=== PATIENT | male | born 1945 | race Caucasian/White ===

== ENCOUNTER 2017-07-11 19:22 | Observation (INO) | payer BC, OTHER ==
[~2017-07-11] VITALS: Ht 198.1 cm; Wt 90.6 kg
[2017-07-11 19:58] LABS: HEMATOCRIT 42.7 % (38.0-50.0); HEMOGLOBIN 14.7 G/DL (12.5-16.6); MCH 29.9 PG (29.0-34.0); MCHC 34.4 G/DL (30.0-36.0); PLATELET COUNT 183 K/uL (156-360); RBC DIS.WIDTH-CV 12.3 % (11.8-14.6); RBC DIS.WIDTH-SD 39.3 % (39-53); RED BLOOD COUNT 4.91 M/uL (4.00-5.50); WHITE BLOOD COUNT 6.8 K/uL (4.1-10.2)
[2017-07-11 20:07] LABS: CHLORIDE 102 mEq/L (99-109); POTASSIUM 5.1 mEq/L (3.7-5.4); SODIUM 136 mEq/L (136-147)
[2017-07-11 20:08] LABS: GLUCOSE 176 mg/dL (70-99)
[2017-07-11 20:12] LABS: CREATININE 0.9 mg/dL (0.6-1.3); GFR ESTIMATE (CALCULATED) > 59 mL/min/ (58.99-99999)
[2017-07-11 20:13] LABS: UREA NITROGEN (BUN) 11 mg/dL (9-23)
[2017-07-11 20:20] LABS: TROP-I INTERPRETATION NEGATIVE; TROPONIN-I < 0.01 ng/mL (0.0-0.30)
[2017-07-11] MEDS ORDERED: METFORMIN HCL500 MG PO (22:48)
[2017-07-11] MEDS ORDERED: AMARYL4 MG PO (22:49)
[2017-07-11] MEDS ORDERED: LUNESTA3 MG PO (22:50)
[2017-07-11] MEDS ORDERED: KLONOPIN1 MG PO (22:51)
[2017-07-11] MEDS ORDERED: LIPITOR20 MG PO (22:52)
[2017-07-11] MEDS ORDERED: LO-DOSE ASPIRIN81 M2 PO (22:53)
[2017-07-11 23:20] VITALS: BP 121/71
[2017-07-12 03:08] LABS: TROP-I INTERPRETATION NEGATIVE; TROPONIN-I < 0.01 ng/mL (0.0-0.30)
[2017-07-12 03:59] VITALS: BP 87/60
[2017-07-12 04:09] VITALS: BP 102/68
[2017-07-12 08:14] VITALS: BP 114/61
[2017-07-12 08:16] LABS: HEMATOCRIT 37.1 % (38.0-50.0); MCH 29.2 PG (29.0-34.0); MCV 86.1 FL (86-99); PLATELET COUNT 149 K/uL (156-360); RBC DIS.WIDTH-CV 12.3 % (11.8-14.6); RBC DIS.WIDTH-SD 38.6 % (39-53); RED BLOOD COUNT 4.31 M/uL (4.00-5.50); WHITE BLOOD COUNT 4.9 K/uL (4.1-10.2)
[2017-07-12 08:19] LABS: HEMOGLOBIN 12.6 G/DL (12.5-16.6)
[2017-07-12 08:41] LABS: TROP-I INTERPRETATION NEGATIVE; TROPONIN-I < 0.01 ng/mL (0.0-0.30)
[2017-07-12 08:46] LABS: CHLORIDE 105 MEQ/L (99-109); CREATININE 0.8 MG/DL (0.6-1.3); GFR ESTIMATE (CALCULATED) > 59 mL/min/ (58.99-99999); POTASSIUM 4.3 MEQ/L (3.7-5.4); SODIUM 138 MEQ/L (136-147); UREA NITROGEN (BUN) 14 mg/dL (9-23)
[2017-07-12 09:32] LABS: GLUCOSE 91 mg/dL (70-99)
[2017-07-12 12:13] VITALS: BP 101/71
[2017-07-12 12:29] LABS: PTT 28.2 SEC (25-37)
[2017-07-12 16:03] VITALS: BP 115/80
[2017-07-12 19:18] VITALS: BP 123/66
[2017-07-13 00:11] VITALS: BP 121/66
[2017-07-13 03:50] VITALS: BP 101/51
[2017-07-13 07:29] VITALS: BP 115/87
[2017-07-13] MEDS ORDERED: AMOX TR-K CLV1 EAC4 PO (11:47)
[2017-07-13] MEDS ORDERED: TRAMADOL HCL50 MG PO (11:48)
[2017-07-13 12:14] VITALS: BP 116/73
== END 2017-07-13 12:48 | disposition home or self-care (01) ==
LOC: EME 19:22 → EDOF 22:11 → ENRESERV 22:12 → 4SOUTH 23:03
PROVIDERS: Hospitalist; Physician Assistant
PROC: 0BBF3ZX Excision of Right Lower Lung Lobe, Percutaneous Approach, Diagnostic (ICD-10-PCS; principal; 2017-07-12)
DX: C34.31 Malignant neoplasm of lower lobe, right bronchus or lung (principal); J95.811 Postprocedural pneumothorax; Z87.891 Personal history of nicotine dependence; I45.19 Other right bundle-branch block; E11.9 Type 2 diabetes mellitus without complications; I10 Essential (primary) hypertension; E78.5 Hyperlipidemia, unspecified; F40.240 Claustrophobia; Z82.49 Family history of ischemic heart disease and other diseases of the circulatory system; Z83.3 Family history of diabetes mellitus
CPT/HCPCS: 71045; 71046; 71275; 77012; 80048; 82948; 83605; 84145 90; 84484; 85027; 85610; 85730; 87040; 88305; 88341 TC; 88342 TC; 93005; 99281; 99284; G0378; J0696; J1650; J1815; J1885; J3010; J7030

== ENCOUNTER 2017-08-15 18:10 | Inpatient (IN) | payer BC, OTHER ==
[~2017-08-15] VITALS: Ht 195.6 cm; Wt 91.7 kg
[~2017-08-15 18:10] MED LIST: AMARYL4 MG PO; AMOX TR-K CLV1 EAC4 PO; KLONOPIN1 MG PO; LIPITOR20 MG PO; LO-DOSE ASPIRIN81 M2 PO; LUNESTA3 MG PO; METFORMIN HCL500 M1 PO; TRAMADOL HCL50 MG PO
[2017-08-15 18:47] LABS: HEMATOCRIT 42.5 % (38.0-50.0); MCH 29.9 PG (29.0-34.0); MCHC 35.3 G/DL (30.0-36.0); MCV 84.8 FL (86-99); PLATELET COUNT 220 K/uL (156-360); RBC DIS.WIDTH-CV 12.1 % (11.8-14.6); RBC DIS.WIDTH-SD 37.2 % (39-53); RED BLOOD COUNT 5.01 M/uL (4.00-5.50); WHITE BLOOD COUNT 7.9 K/uL (4.1-10.2)
[2017-08-15 18:50] LABS: ALBUMIN 3.5 g/dL (3.2-4.8); CHLORIDE 100 mEq/L (99-109); POTASSIUM 4.6 mEq/L (3.7-5.4); SODIUM 136 mEq/L (136-147)
[2017-08-15 18:52] LABS: GLUCOSE 118 mg/dL (70-99); TOTAL PROTEIN 6.1 g/dL (6.4-8.3)
[2017-08-15 18:54] LABS: TOTAL BILIRUBIN 0.6 mg/dL (0.0-1.0)
[2017-08-15 18:56] LABS: ALKALINE PHOSPHATASE 97 IU/L (3-129); CREATININE 0.7 mg/dL (0.6-1.3); GFR ESTIMATE (CALCULATED) > 59 mL/min/ (58.99-99999)
[2017-08-15 18:57] LABS: UREA NITROGEN (BUN) 17 mg/dL (9-23)
[2017-08-15 18:58] LABS: AST (GOT) 23 IU/L (2-34)
[2017-08-15 18:59] LABS: ALT (GPT) 21 IU/L (3-49); LIPASE 81 U/L (1.0-51.0)
[2017-08-15 19:05] LABS: TROP-I INTERPRETATION NEGATIVE; TROPONIN-I 0.01 ng/mL (0.0-0.30)
[2017-08-15] MEDS ORDERED: DULOXETINE HCL40 MG PO (20:30)
[2017-08-15] MEDS ORDERED: ZOFRAN8 MG PO (20:31)
[2017-08-15] MEDS ORDERED: HYDROCODON-ACE1 EAC9 PO (20:31)
[2017-08-15] MEDS ORDERED: FOLIC ACID1 MG PO (20:31)
[2017-08-16] VITALS (7 sets, daily range): BP systolic 101–129; BP diastolic 57–80
[2017-08-16 06:41] LABS: HEMATOCRIT 39.1 % (38.0-50.0); HEMOGLOBIN 13.3 G/DL (12.5-16.6); MCH 28.9 PG (29.0-34.0); PLATELET COUNT 209 K/uL (156-360); RBC DIS.WIDTH-CV 12.2 % (11.8-14.6); RBC DIS.WIDTH-SD 37.4 % (39-53); WHITE BLOOD COUNT 6.4 K/uL (4.1-10.2)
[2017-08-16 07:01] LABS: TROP-I INTERPRETATION NEGATIVE; TROPONIN-I < 0.01 ng/mL (0.0-0.30)
[2017-08-16 07:07] LABS: CHLORIDE 98 MEQ/L (99-109); CREATININE 0.8 MG/DL (0.6-1.3); GFR ESTIMATE (CALCULATED) > 59 mL/min/ (58.99-99999); GLUCOSE 139 mg/dL (70-99); POTASSIUM 4.5 MEQ/L (3.7-5.4); SODIUM 135 MEQ/L (136-147); UREA NITROGEN (BUN) 14 mg/dL (9-23)
[2017-08-16 07:41] LABS: INTER. NORMALIZED RATIO 1.1
[2017-08-16 07:43] LABS: PTT 27.9 SEC (25-37)
[2017-08-16 12:58] LABS: TYPE OF FLUID PLEURAL
[2017-08-16 13:52] LABS: BODY FLUID PROTEIN 3.9 G/DL
[2017-08-16 14:05] LABS: APPEARANCE CLOUDY-BLOODY; BODY FLUID EOSINOPHILS 0 % (0-25); BODY FLUID RBC'S 43000 /MM^3 (0-100); BODY FLUID WBC'S 1082 /MM^3 (0-500); MONONUCLEAR WBC'S 89 %; POLYNUCLEAR WBC'S 11 % (0-25)
[2017-08-16 14:30] LABS: TROP-I INTERPRETATION NEGATIVE; TROPONIN-I < 0.01 ng/mL (0.0-0.30)
[2017-08-17 06:50] VITALS: BP 102/62
[2017-08-17 15:16] VITALS: BP 107/66
[2017-08-17 22:59] VITALS: BP 93/52
[2017-08-18 07:27] VITALS: BP 99/63
[2017-08-18 12:23] LABS: HEMATOCRIT 38.7 % (38.0-50.0); HEMOGLOBIN 13.4 G/DL (12.5-16.6); MCH 28.8 PG (29.0-34.0); MCHC 34.6 G/DL (30.0-36.0); MCV 83.2 FL (86-99); PLATELET COUNT 164 K/uL (156-360); RBC DIS.WIDTH-CV 11.9 % (11.8-14.6); RBC DIS.WIDTH-SD 36.1 % (39-53); RED BLOOD COUNT 4.65 M/uL (4.00-5.50); WHITE BLOOD COUNT 2.7 K/uL (4.1-10.2)
[2017-08-18 12:48] LABS: ATYPICAL LYMPHOCYTE 3.7 %; EOSINOPHIL ABS CT 0.1; EOSINOPHILS 2.7 % (0-5.0); LYMPHOCYTES 20.2 % (15.0-45.0); MONOCYTES 0.9 % (0-9.0); SEG.NEUTROPHILS 72.5 % (46.0-76.0); SMUDGE CELLS 0.9
[2017-08-18 13:18] VITALS: BP 93/61
[2017-08-18] MEDS ORDERED: LEVAQUIN750 MG PO (14:28)
== END 2017-08-18 15:51 | disposition home or self-care (01) | DRG 187 ==
LOC: EME 18:10 → 5EAST 23:32 → EDOF 23:32 → ENRESERV 23:35 → 5EAST 08-16 01:49
PROVIDERS: Hospitalist; Physician Assistant; Radiology Diagnostic Radiology; Student in an Organized Health Care Education/Training Program
PROC: 0W993ZZ Drainage of Right Pleural Cavity, Percutaneous Approach (ICD-10-PCS; principal; 2017-08-16)
PROC: 0W993ZZ Drainage of Right Pleural Cavity, Percutaneous Approach (ICD-10-PCS; 2017-08-17)
DX: J90 Pleural effusion, not elsewhere classified (principal); C34.90 Malignant neoplasm of unspecified part of unspecified bronchus or lung; E78.5 Hyperlipidemia, unspecified; J91.0 Malignant pleural effusion; Z87.891 Personal history of nicotine dependence; J98.11 Atelectasis; E11.9 Type 2 diabetes mellitus without complications; I10 Essential (primary) hypertension; J44.9 Chronic obstructive pulmonary disease, unspecified; Z92.21 Personal history of antineoplastic chemotherapy; Z79.4 Long term (current) use of insulin
CPT/HCPCS: 71045; 71046; 71275; 76942; 80048; 80053; 81003; 82945; 82948; 83615 91; 83690; 83986 90; 84157; 84484; 85025; 85027; 85610; 85730; 87070; 87075; 87205; 88108; 88305; 88341 TC; 88342 TC; 89051; 93005; 94799; 99281; 99284; J1644; J1815; J2405; J3010; J7040

== ENCOUNTER 2017-10-08 13:24 | Inpatient (IN) | payer BC, OTHER ==
[~2017-10-08] VITALS: Ht 195.6 cm; Wt 74.9 kg
[~2017-10-08 13:24] MED LIST changes: +DULOXETINE HCL40 MG PO; +FOLIC ACID1 MG PO; +HYDROCODON-ACE1 EAC9 PO; +LEVAQUIN750 MG PO; +ZOFRAN8 MG PO
[2017-10-08 14:37] LABS: BASOPHIL (%) 0 % (0-1); EOSINOPHIL (%) 1.6 % (0-5); HEMATOCRIT 22.9 % (38.0-50.0); HEMOGLOBIN 7.7 G/DL (12.5-16.6); LYMPHOCYTE (%) 14.7 % (15-42); LYMPHOCYTE COUNT 0.3 K/uL (1.0-2.8); MCHC 33.6 G/DL (30.0-36.0); MCV 83.3 FL (86-99); MONOCYTE (%) 21.1 % (3-12); MONOCYTE COUNT 0.4 K/uL (0-0.8); NEUTROPHIL (%) 62.6 % (45-76); NEUTROPHIL COUNT 1.2 K/uL (1.8-6.4); PLATELET COUNT 194 K/uL (156-360); RBC DIS.WIDTH-SD 47.5 % (39-53); RED BLOOD COUNT 2.75 M/uL (4.00-5.50); WHITE BLOOD COUNT 1.9 K/uL (4.1-10.2)
[2017-10-08 14:55] LABS: TROP-I INTERPRETATION NEGATIVE; TROPONIN-I < 0.01 ng/mL (0.0-0.30)
[2017-10-08 15:17] LABS: CHLORIDE 95 MEQ/L (99-109); CREATININE 0.9 MG/DL (0.6-1.3); GFR ESTIMATE (CALCULATED) > 59 mL/min/ (58.99-99999); GLUCOSE 195 mg/dL (70-99); POTASSIUM 4.2 MEQ/L (3.7-5.4); SODIUM 134 MEQ/L (136-147); UREA NITROGEN (BUN) 14 mg/dL (9-23)
[2017-10-08] MEDS ORDERED: CLONAZEPAM1 MG PO (16:26)
[2017-10-08] MEDS ORDERED: ESZOPICLONE3 MG PO (16:26)
[2017-10-08] MEDS ORDERED: DULOXETINE HCL20 MG PO (16:27)
[2017-10-08] MEDS ORDERED: ZOFRAN8 MG PO (16:27)
[2017-10-08] MEDS ORDERED: METFORMIN HCL500 M1 PO (16:28)
[2017-10-08] MEDS ORDERED: HYDROCODON-ACE1 EAC9 PO (16:28)
[2017-10-08] MEDS ORDERED: GLIMEPIRIDE4 MG PO (16:28)
[2017-10-08] MEDS ORDERED: FOLIC ACID1 MG PO (16:29)
[2017-10-08] MEDS ORDERED: FENTANYL1 EAC5 TD (16:29)
[2017-10-08] MEDS ORDERED: DRONABINOL5 MG PO (16:29)
[2017-10-08 16:45] LABS: APPEARANCE CLEAR ((CLEAR)); BILIRUBIN NEGATIVE; BLOOD NEGATIVE; COLOR YELLOW ((YELLOW)); GLUCOSE (STRIP) NEGATIVE; KETONES NEGATIVE; LEUKOCYTES NEGATIVE; NITRITE NEGATIVE; PROTEIN (STRIP) 30; SPECIFIC GRAVITY 1.024 (1.000-1.030); UCUL ADDED? NO
[2017-10-08 18:09] LABS: ALBUMIN 2.5 G/DL (3.2-4.8); ALKALINE PHOSPHATASE 98 IU/L (3-129); ALT (GPT) 12 IU/L (3-49); AST (GOT) 18 IU/L (2-34); DIRECT BILIRUBIN 0.1 mg/dL (0.0-0.3); TOTAL BILIRUBIN 0.5 MG/DL (0.0-1.0); TOTAL PROTEIN 5.5 G/DL (6.4-8.3)
[2017-10-08 18:20] VITALS: BP 109/65
[2017-10-08] MEDS ORDERED: GABAPENTIN600 MG PO (18:30)
[2017-10-09] VITALS (13 sets, daily range): BP systolic 96–125; BP diastolic 58–76
[2017-10-09 06:41] LABS: HEMOGLOBIN 8.5 G/DL (12.5-16.6); MCH 27.5 PG (29.0-34.0); MCHC 32.7 G/DL (30.0-36.0); MCV 84.1 FL (86-99); PLATELET COUNT 216 K/uL (156-360); RBC DIS.WIDTH-CV 16.1 % (11.8-14.6); RBC DIS.WIDTH-SD 48.2 % (39-53); RED BLOOD COUNT 3.09 M/uL (4.00-5.50); WHITE BLOOD COUNT 2.5 K/uL (4.1-10.2)
[2017-10-09 07:06] LABS: CHLORIDE 98 MEQ/L (99-109); CREATININE 0.6 MG/DL (0.6-1.3); GFR ESTIMATE (CALCULATED) > 59 mL/min/ (58.99-99999); POTASSIUM 3.6 MEQ/L (3.7-5.4); SODIUM 133 MEQ/L (136-147); UREA NITROGEN (BUN) 8 mg/dL (9-23)
[2017-10-09 07:20] LABS: GLUCOSE 113 mg/dL (70-99)
[2017-10-10 00:25] VITALS: BP 130/75
[2017-10-10 04:07] VITALS: BP 130/69
[2017-10-10 06:02] LABS: HEMATOCRIT 26.3 % (38.0-50.0); HEMOGLOBIN 8.7 G/DL (12.5-16.6); MCH 27.9 PG (29.0-34.0); MCHC 33.1 G/DL (30.0-36.0); MCV 84.3 FL (86-99); PLATELET COUNT 236 K/uL (156-360); RBC DIS.WIDTH-CV 16.4 % (11.8-14.6); RBC DIS.WIDTH-SD 50.4 % (39-53); RED BLOOD COUNT 3.12 M/uL (4.00-5.50); WHITE BLOOD COUNT 2.7 K/uL (4.1-10.2)
[2017-10-10 06:34] LABS: CHLORIDE 103 MEQ/L (99-109); CREATININE 0.6 MG/DL (0.6-1.3); GFR ESTIMATE (CALCULATED) > 59 mL/min/ (58.99-99999); GLUCOSE 131 mg/dL (70-99); SODIUM 138 MEQ/L (136-147); UREA NITROGEN (BUN) 8 mg/dL (9-23)
[2017-10-10 07:35] VITALS: BP 101/58
[2017-10-10] MEDS ORDERED: AUGMENTIN500 MG PO (09:45)
[2017-10-10] MEDS ORDERED: COMPAZINE10 MG PO (23:55)
== END 2017-10-10 11:49 | disposition home health service (06) | DRG 193 ==
LOC: EME 13:24 → EDOF 16:39 → ENRESERV 16:58 → 5EAST 18:07
PROVIDERS: Emergency Medicine; Internal Medicine; Physician Assistant
PROC: 30233N1 Transfusion of Nonautologous Red Blood Cells into Peripheral Vein, Percutaneous Approach (ICD-10-PCS; principal; 2017-10-09)
DX: J18.9 Pneumonia, unspecified organism (principal); D61.810 Antineoplastic chemotherapy induced pancytopenia; J91.8 Pleural effusion in other conditions classified elsewhere; N39.0 Urinary tract infection, site not specified; E86.0 Dehydration; C34.90 Malignant neoplasm of unspecified part of unspecified bronchus or lung; C79.51 Secondary malignant neoplasm of bone; R41.0 Disorientation, unspecified; I10 Essential (primary) hypertension; E78.5 Hyperlipidemia, unspecified; E11.9 Type 2 diabetes mellitus without complications; F32.9 Major depressive disorder, single episode, unspecified; I95.9 Hypotension, unspecified; Z87.891 Personal history of nicotine dependence; Z87.01 Personal history of pneumonia (recurrent); Z85.118 Personal history of other malignant neoplasm of bronchus and lung; Z79.84 Long term (current) use of oral hypoglycemic drugs
CPT/HCPCS: 71045; 71250; 80048; 80076; 81003; 82948; 83605; 84484; 85025; 85027; 86850; 86870; 86900; 86901; 86920; 87040; 87070; 87205; 93005; 94799; 99281; 99285; J1650; J1815; J2543; J7030; J7050; P9016

== ENCOUNTER 2017-10-10 22:31 | Inpatient (IN) | payer BC, OTHER ==
[~2017-10-10] VITALS: Ht 195.6 cm; Wt 92.2 kg
[~2017-10-10 22:31] MED LIST changes: +AUGMENTIN500 MG PO; +CLONAZEPAM1 MG PO; +DRONABINOL5 MG PO; +DULOXETINE HCL20 MG PO; +ESZOPICLONE3 MG PO; +FENTANYL1 EAC5 TD; +GABAPENTIN600 MG PO; +GLIMEPIRIDE4 MG PO
[2017-10-10 23:37] LABS: BASOPHIL (%) 0.2 % (0-1); EOSINOPHIL (%) 0.5 % (0-5); HEMATOCRIT 28.3 % (38.0-50.0); HEMOGLOBIN 9.5 G/DL (12.5-16.6); IMMATURE GRANULOCYTE (%) 0.7 % (0.0-0.7); LYMPHOCYTE (%) 7.6 % (15-42); LYMPHOCYTE COUNT 0.3 K/uL (1.0-2.8); MCH 27.9 PG (29.0-34.0); MCHC 33.6 G/DL (30.0-36.0); MONOCYTE (%) 18.5 % (3-12); MONOCYTE COUNT 0.8 K/uL (0-0.8); NEUTROPHIL (%) 72.5 % (45-76); PLATELET COUNT 257 K/uL (156-360); RBC DIS.WIDTH-CV 16.6 % (11.8-14.6); RED BLOOD COUNT 3.41 M/uL (4.00-5.50); WHITE BLOOD COUNT 4.1 K/uL (4.1-10.2)
[2017-10-10 23:42] LABS: INTER. NORMALIZED RATIO 1.4
[2017-10-10 23:44] LABS: CHLORIDE 97 mEq/L (99-109); POTASSIUM 4.3 mEq/L (3.7-5.4); SODIUM 132 mEq/L (136-147)
[2017-10-10 23:45] LABS: PTT 30.8 SEC (25-37)
[2017-10-10 23:46] LABS: GLUCOSE 195 mg/dL (70-99)
[2017-10-10 23:50] LABS: CREATININE 0.7 mg/dL (0.6-1.3); GFR ESTIMATE (CALCULATED) > 59 mL/min/ (58.99-99999)
[2017-10-10 23:51] LABS: UREA NITROGEN (BUN) 7 mg/dL (9-23)
[2017-10-10] MEDS ORDERED: COMPAZINE10 MG PO (23:55)
[2017-10-10 23:57] LABS: TROP-I INTERPRETATION NEGATIVE; TROPONIN-I < 0.01 ng/mL (0.0-0.30)
[2017-10-11 03:11] VITALS: BP 132/80
[2017-10-11 03:43] LABS: APPEARANCE CLEAR ((CLEAR)); BILIRUBIN NEGATIVE; BLOOD SMALL; COLOR YELLOW ((YELLOW)); GLUCOSE (STRIP) NEGATIVE; KETONES NEGATIVE; LEUKOCYTES NEGATIVE; NITRITE NEGATIVE; PROTEIN (STRIP) NEGATIVE; SPECIFIC GRAVITY 1.012 (1.000-1.030); UROBILINOGEN 0.2 MG/DL (0.2-1.0)
[2017-10-11 03:45] LABS: BACTERIA NONE SEEN /HPF; EPITHELIAL CELLS NONE SEEN /HPF; MUCUS TRACE /LPF; RED BLOOD CELLS 0-5 /HPF (0-5); UCUL ADDED? NO; WHITE BLOOD CELLS 0-5 /HPF (0-5)
[2017-10-11 06:10] LABS: ALKALINE PHOSPHATASE 110 IU/L (3-129); ALT (GPT) 9 IU/L (3-49); AST (GOT) 18 IU/L (2-34); DIRECT BILIRUBIN 0.2 mg/dL (0.0-0.3); LIPASE 10 U/L (1.0-51.0); TOTAL BILIRUBIN 0.6 MG/DL (0.0-1.0)
[2017-10-11 06:14] LABS: TOTAL PROTEIN 4.1 G/DL (6.4-8.3)
[2017-10-11 07:00] VITALS: BP 122/80
[2017-10-11 11:40] VITALS: BP 113/64
[2017-10-11 15:07] VITALS: BP 117/73
[2017-10-11 23:54] VITALS: BP 119/62
[2017-10-12 05:52] LABS: BASOPHIL (%) 0.4 % (0-1); EOSINOPHIL (%) 0.8 % (0-5); HEMATOCRIT 30.3 % (38.0-50.0); HEMOGLOBIN 9.9 G/DL (12.5-16.6); IMMATURE GRANULOCYTE (%) 1.3 % (0.0-0.7); LYMPHOCYTE (%) 11.7 % (15-42); LYMPHOCYTE COUNT 0.6 K/uL (1.0-2.8); MCH 27.3 PG (29.0-34.0); MCHC 32.7 G/DL (30.0-36.0); MCV 83.5 FL (86-99); MONOCYTE (%) 17.6 % (3-12); MONOCYTE COUNT 0.9 K/uL (0-0.8); NEUTROPHIL (%) 68.2 % (45-76); NEUTROPHIL COUNT 3.6 K/uL (1.8-6.4); RBC DIS.WIDTH-SD 51.9 % (39-53); RED BLOOD COUNT 3.63 M/uL (4.00-5.50); WHITE BLOOD COUNT 5.2 K/uL (4.1-10.2)
[2017-10-12 05:53] LABS: PLATELET COUNT 345 K/uL (156-360)
[2017-10-12 06:16] LABS: CHLORIDE 98 MEQ/L (99-109); CREATININE 0.7 MG/DL (0.6-1.3); GFR ESTIMATE (CALCULATED) > 59 mL/min/ (58.99-99999); SODIUM 136 MEQ/L (136-147); UREA NITROGEN (BUN) 5 mg/dL (9-23)
[2017-10-12 06:18] LABS: GLUCOSE 106 mg/dL (70-99)
[2017-10-12 06:30] LABS: VANCOMYCIN, TROUGH 10.3 MCG/ML (10-20)
[2017-10-12 07:27] VITALS: BP 117/68
== END 2017-10-12 15:40 | disposition hospice, home (50) | DRG 194 ==
LOC: EME 22:31 → EDOF 10-11 01:30 → 5EAST 10-11 01:30 → ENRESERV 10-11 01:47 → 5EAST 10-11 02:38
PROVIDERS: Emergency Medicine; Hospitalist
DX: J18.9 Pneumonia, unspecified organism (principal); Y95 Nosocomial condition; J90 Pleural effusion, not elsewhere classified; R11.10 Vomiting, unspecified; R10.9 Unspecified abdominal pain; C34.91 Malignant neoplasm of unspecified part of right bronchus or lung; C79.51 Secondary malignant neoplasm of bone; Z51.5 Encounter for palliative care; Z66 Do not resuscitate; I10 Essential (primary) hypertension; E78.5 Hyperlipidemia, unspecified; E11.9 Type 2 diabetes mellitus without complications; D64.9 Anemia, unspecified; Z87.891 Personal history of nicotine dependence
CPT/HCPCS: 71045; 74176; 76705; 80048; 80048 91; 80076; 80202; 81003; 82948; 83605; 83690; 83880; 84484; 85025; 85610; 85730; 87040; 87070; 87205; 87449; 87502; 94640; 94799; J0456; J1644; J1815; J2543; J3370; J7030; J7050